=== PATIENT | male | born 1950 | race Caucasian/White ===

== ENCOUNTER 2019-08-07 20:43 | Inpatient (IN) | payer MEDICARE ==
[~2019-08-07] VITALS: Ht 185.4 cm; Wt 120.2 kg
[2019-08-07 21:00] VITALS: BP_SYST 123; BP_SYST 157; BP_SYST 164; BP_DIAS 75; BP_DIAS 82; BP_DIAS 95
[2019-08-07] MEDS ORDERED: ACETAMINOPHEN 325 MG TABLET PO PRN (21:00)
[2019-08-07] MEDS ORDERED: DOCUSATE 100 MG CAPSULE PO PRN (21:00)
[2019-08-07] MEDS ORDERED: POLYETHYLENE GLYCOL 17 GM PACKET PO PRN (21:00)
[2019-08-07] MEDS ORDERED: MELATONIN 3 MG TABLET PO SCH (21:00)
[2019-08-07] MEDS ORDERED: ONDANSETRON ODT 4 MG PO PRN (21:00)
[2019-08-07] MEDS ORDERED: BISACODYL 10 MG SUPP PR PRN (21:00)
[2019-08-07 22:25] VITALS: BP 123/75
[2019-08-07] MEDS ORDERED: HYDR50TA3 PO (22:38)
[2019-08-07] MEDS ORDERED: FLUO20CA19 PO (22:38)
[2019-08-07] MEDS ORDERED: ASCO10004 PO (22:38)
[2019-08-07] MEDS ORDERED: NEBI10TA3 PO (22:38)
[2019-08-07] MEDS ORDERED: HYDR-36 PO (22:38)
[2019-08-07] MEDS ORDERED: POLY17PO5 PO (22:38)
[2019-08-07] MEDS ORDERED: BUSP10TA PO (22:38)
[2019-08-07] MEDS ORDERED: DOCU-131 PO (22:38)
[2019-08-07] MEDS ORDERED: OMEP20TA62 PO (22:38)
[2019-08-07 22:54] LABS: MICROSCOPIC NOT IND
[2019-08-07 22:58] LABS: CULTURE INDICATED? NO
[2019-08-08 07:16] LABS: BASOPHILS # (AUTO) 0.04 x10^3/uL (0-0.1); BASOPHILS % (AUTO) 0 % (0-1); EOSINOPHILS # (AUTO) 0.17 x10^3/uL (0-0.4); EOSINOPHILS % (AUTO) 2 % (1-7); LYMPHOCYTES # (AUTO) 1.64 x10^3/uL (1-3.4); LYMPHOCYTES % (AUTO) 18 % (22-44); MD NO; MEAN CORPUSCULAR HEMOGLOBIN 30.9 pg (27.5-34.5); MEAN CORPUSCULAR HGB CONC 33.8 g/dL (33.2-36.2); MEAN CORPUSCULAR VOLUME 91.2 fL (81-97); MEAN PLATELET VOLUME 7.1 fL (7.4-10.4); MONOCYTES # (AUTO) 0.58 x10^3/uL (0.2-0.8); MONOCYTES % (AUTO) 6 % (2-9); NEUTROPHILS # (AUTO) 6.73 x10^3/uL (1.8-6.8); NEUTROPHILS % (AUTO) 73 % (42-75); PLATELET COUNT 243 x10^3/uL (130-400); RED BLOOD COUNT 4.91 x10^6/uL (4.38-5.82); RED CELL DISTRIBUTION WIDTH 13.7 % (9.4-14.8)
[2019-08-08 07:17] VITALS: BP 162/80
[2019-08-08 07:24] LABS: ALBUMIN 3.7 g/dL (3.4-5.0); ANION GAP 7 mmol/L (5-15); CALCIUM 8.8 mg/dL (8.5-10.1); CHLORIDE 100 mmol/L (98-107)
[2019-08-08 07:54] LABS: ALANINE AMINOTRANSFERASE 17 U/L (12-78); ALKALINE PHOSPHATASE 63 U/L (45-117); BILIRUBIN,TOTAL 0.6 mg/dL (0.2-1.0); CHOL/HDL RATIO 3.4; CHOLESTEROL, TOTAL 131 mg/dL (140-239); CREATININE 0.81 mg/dL (0.7-1.3); FREE T4 (FREE THYROXINE) 1.41 ng/dL (0.76-1.46); HDL CHOL % 30 % (26-37); HDL CHOLESTEROL (DIRECT) 39 mg/dL (40-60); LDL CHOLESTEROL,CALCULATED 75 mg/dL (54-169); LDL/HDL RATIO 1.9 (0.5-3.0); TOTAL PROTEIN 6.5 g/dL (6.4-8.2); TRIGLYCERIDES 83 mg/dL (50-200); VLDL CHOLESTEROL 17 mg/dL (0-25)
[2019-08-08] MEDS ORDERED: HYDROcodone/APAP 10/325 MG TABLET PO PRN (12:00)
[2019-08-08] MEDS: NEBIVOLOL HCL 5 MG TABLET PO SCH (12:49)
[2019-08-08] MEDS: FLUOXETINE HCL 20 MG CAPSULE PO SCH (16:30)
[2019-08-08] MEDS: BUSPIRONE 10 MG TABLET PO SCH ×2 (17:58→20:42)
[2019-08-08 19:27] VITALS: BP 151/80
[2019-08-08] MEDS ORDERED: DOCUSATE 100 MG CAPSULE PO SCH (21:00)
[2019-08-08] MEDS ORDERED: TRAZODONE 50MG TABLET PO SCH (21:00)
[2019-08-08] MEDS ORDERED: POLYETHYLENE GLYCOL 17 GM PACKET PO SCH (21:00)
[2019-08-09] MEDS ORDERED: OMEPRAZOLE 20 MG CAPSULE.DR PO SCH (06:00)
[2019-08-09 07:31] VITALS: BP 130/76
[2019-08-09] MEDS: FLUOXETINE HCL 20 MG CAPSULE PO SCH (08:38)
[2019-08-09] MEDS: BUSPIRONE 10 MG TABLET PO SCH ×2 (08:39→15:29)
[2019-08-09] MEDS: NEBIVOLOL HCL 5 MG TABLET PO SCH (08:40)
[2019-08-09] MEDS ORDERED: HYDROCHLOROTHIAZIDE 25 MG TABLET PO SCH (09:00)
== END 2019-08-09 16:22 | disposition home or self-care (01) | DRG 885 ==
LOC: 3E 21:11
PROVIDERS: ADMIT Psychiatry & Neurology Psychosomatic Medicine; ATTEND Psychiatry & Neurology Psychosomatic Medicine
DX: F33.2 Major depressive disorder, recurrent severe without psychotic features (principal); F41.1 Generalized anxiety disorder; G25.0 Essential tremor; G47.00 Insomnia, unspecified; G89.29 Other chronic pain; I10 Essential (primary) hypertension; K21.9 Gastro-esophageal reflux disease without esophagitis; K44.9 Diaphragmatic hernia without obstruction or gangrene; M54.9 Dorsalgia, unspecified; K59.09 Other constipation; Z79.899 Other long term (current) drug therapy; Z83.3 Family history of diabetes mellitus; Z90.89 Acquired absence of other organs; Z82.49 Family history of ischemic heart disease and other diseases of the circulatory system; Z81.8 Family history of other mental and behavioral disorders; Z88.1 Allergy status to other antibiotic agents; Z91.018 Allergy to other foods
CPT/HCPCS: 36415; 71045; 80053; 80061; 81003; 82140; 82607; 84439; 84443; 85025; 93005